=== PATIENT | male | born 1995 | race Caucasian/White ===

== ENCOUNTER 2023-03-27 13:04 | Outpatient (AMB) | payer OTHER, SELFPAY ==
--- NOTE | 2023-03-27 13:21 | AM.OFFWIN_ITS ---
Intake Vital Signs 03/27/23 13:25 Height 5 ft 6 in Weight 97.976 kg BMI 34.9 BP 110/76 Blood Pressure Location Rt brachial Position Sitting Pulse 82 Pulse Source Pulse Oximeter Temp 97.1 F Temp Source Temporal Artery Scan Pulse Oximetry (%) 99 Oxygen Delivery Method Room Air Intake Visit Reasons: EP Hemorrhoid 4 wks masked in lobby Intake Note: pt is here today for hemorrhoid 4 wks Allergies No Known Allergies Allergy (Verified 03/27/23 13:22) Do you need a note to return to daycare/school/sports/work: Yes HPI HPI Comments History of Present Illness Details 1400 28-year-old male presents for evaluation of hemorrhoid, that is not going away with [id number] medications. Denies pain to the hemorrhoid however is to suppress it is not going away. Has had hemorrhoids in the past. Denies constipation. Physical exam non thrombosed external hemorrhoid. History and physical exam concerning for external non thrombosed hemorrhoid. No signs of strangulation or incarceration Plan at this time will prescribed Proctofoam. Advised follow-up with PCP with General surgery referral. Educated patient on diagnosis and treatment plan, answered all question, patient verbalizes understanding. At this time patient will be discharged home, advised to return with new or worsening symptoms. Educated on worrisome signs and symptoms and when to return. At this time I feel comfortable discharge home. Review of Systems Const Details: Constitutional : No Weight loss, No Fever, No Chills, No Fatigue, No Malaise ENT/Mouth : No sore throat, No Rhinorrhea Eyes: No Eye Pain, No Swelling, No Redness Cardiovascular : No Chest Pain, No SOB, No Dyspnea on Exertion, No Orthopnea, No Edema, No Palpitations Respiratory : No Cough, No Sputum, No Wheezing Gastrointestinal : No Nausea, No Vomiting, No Diarrhea, No Constipation, No abdominal Pain, No Hematochezia, No Melena Genitourinary : No Dysuria, No Urinary Frequency, No Hematuria, Musculoskeletal : No joint pain, No Myalgias, No Joint Swelling Skin : No Skin Lesions, No rash All other systems reviewed and are negative All systems reviewed & are unremarkable except as noted in HPI and below Physical Exam Vital Signs: Last Vital Signs Temp 97.1 F 03/27/23 13:25 Pulse 82 03/27/23 13:25 BP 110/76 03/27/23 13:25 Pulse Ox 99 03/27/23 13:25 Oxygen Delivery Method Room Air 03/27/23 13:25 BMI result Body Mass Index 34.9 vss Appearance: Alert.? Oriented X3.? No acute distress.? Head: Normocephalic, atraumatic, no step-offs or deformities Eyes: Pupils equal, round and reactive to light.? CVS: Pulses normal.? Respiratory: No respiratory distress.? 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 Skin: Skin warm and dry.? Normal skin color.? Normal skin turgor.? Extremities: No lower extremity edema.? No calf ttp. 5/5 strength to bilateral upper and lower extremities Neuro: Oriented X 3.? No motor deficit.? No sensory deficit. CN 2-12 intact Assessment & Plan Assessment & Plan (1) External hemorrhoid: Code(s): K64.4 - Residual hemorrhoidal skin tags Plan Take your medications as prescribed. If you were prescribed antibiotics today, it is important that you take your medication to their entirety, do not skip any doses, do not finish them early. Follow-up with your primary care provider this week. Return to the emergency department with new or worsening symptoms. Such as fevers, chills, chest pain, shortness of breath, nausea, vomiting, dizziness, headache, vision changes, lethargy In case of emergency call 911 Medications: New pramoxine 1% (Proctofoam) 1 appl DE TID 15 grams 1RF Coding Level of Care Code Est Pt Level 3 (39638) Diagnoses External hemorrhoid K64.4
[2023-03-27 13:25] VITALS: BP 110/76; PULSE 82; TEMP 36.2; O2SAT 99; BMI 34.9
== END 2023-03-27 14:50 | disposition home or self-care (01) ==
PROVIDERS: Visit Provider Physician Assistant
DX: K64.4 Residual hemorrhoidal skin tags (principal)
CPT/HCPCS: 99213